=== PATIENT | female | born 1945 | race Caucasian/White ===

== ENCOUNTER → 2016-12-26 | Outpatient (CLI) | payer OTHER ==
[~2016-12-26] MED LIST: CALCTAB5 PO; ESTR0.3T PO; MULT-506 PO; OMEG10007 PO; PRLSR20 PO
--- NOTE | 2016-12-26 12:04 | DIAGNOSTIC IMAGING REPORT ---
DOUBLE CONTRAST UPPER GI SERIES CLINICAL HISTORY: Ekaterina hernia. COMPARISON STUDY: Abdominal CT dated 11/05/2006. TECHNIQUE: A standard air contrast upper GI series was performed. Spot images of the esophagus and stomach were obtained in multiple obliquities both upright and prone. FINDINGS: The patient swallowed barium without difficulty. The esophagus is structurally normal without evidence of intrinsic or extrinsic mass. The esophageal mucosal pattern is normal. No gastroesophageal reflux was elicited by having the patient perform the Valsalva maneuver. The gastroesophageal junction distends normally. There is a large hiatal hernia, with over half of the stomach located in the thoracic cavity. The gastroesophageal junction is located above the diaphragm. There is no evidence of mass or ulceration, and no evidence of gastritis. The duodenal bulb and sweep are unremarkable. Fluoroscopy time: 2.4 minutes. Fluoroscopic images: 19 IMPRESSION: 1. Large hiatal hernia. 2. The esophagus is normal in morphology. Electronically signed by: Saeid Sevilla M.D. 12/26/2016 12:02 PM Dictated Date/Time: 12/26/2016 11:58 AM
== END | disposition home or self-care (01) ==
LOC: C.RAD 11:29
PROVIDERS: ATTEND Surgery
DX: K44.9 Diaphragmatic hernia without obstruction or gangrene (principal)

== ENCOUNTER → 2017-03-14 | Outpatient (CLI) | payer OTHER ==
--- NOTE | 2017-03-14 15:38 | MAMMOGRAPHY REPORT ---
BILATERAL DIGITAL SCREENING MAMMOGRAM WITH CAD: 03/14/2017 CLINICAL HISTORY: Routine screening. Patient has no complaints. TECHNIQUE: Current study was also evaluated with a Computer Aided Detection (CAD) system. Bilateral CC and MLO views were obtained. COMPARISON: Comparison is made to exams dated: 03/13/2016 mammogram, 03/10/2015 mammogram, 03/09/2014 janene mogram, 03/03/2013 mammogram, 03/01/2012 mammogram, and 02/13/2011 mammogram - [facility] er. BREAST COMPOSITION: There are scattered areas of fibroglandular density in both breasts. FINDINGS: No suspicious masses, calcifications, or areas of architectural distortion are noted in ei ther breast. There has been no significant interval change compared to prior exams. Scattered bilater al benign-appearing calcifications are not significantly changed. IMPRESSION: ACR BI-RADS CATEGORY 2: BENIGN There is no mammographic evidence of malignancy. A 1 year screening mammogram is recommended. The pa tient will receive written notification of the results. Approximately 10% of breast cancers are not detected with mammography. A negative mammographic report should not delay biopsy if a clinically suggestive mass is present. More Valdivia M.D. ah/:03/14/2017 10:57:35 Vehicle Damage Appraiser: Ml WALKER(Marilou)(M), [facility] letter sent: Normal 1/2 BI-RADS Code: ACR BI-RADS Category 2: Benign
== END | disposition home or self-care (01) ==
LOC: C.MAMM 10:30
PROVIDERS: ATTEND Obstetrics & Gynecology
DX: Z12.31 Encounter for screening mammogram for malignant neoplasm of breast (principal)

== ENCOUNTER 2017-08-10 14:35 | Emergency (ER) | payer OTHER ==
[~2017-08-10] VITALS: Ht 157.5 cm; Wt 66.5 kg
[2017-08-10 14:39] VITALS: TEMP 36.4; Ht 157.5 cm; Wt 66.5 kg
--- NOTE | 2017-08-10 15:21 | EMERGENCY ROOM VISIT NOTE ---
History Report prepared by Lilly: Cortez Dean Under the Supervision of: Dr. Pedro Soares M.D. First contact with patient: 14:43 Chief Complaint: SHORTNESS OF BREATH Stated Complaint: SHORTNESS OF BREATH History of Present Illness The patient is a 71 year old female who presents to the Emergency Room with complaints of constant palpitations SKIP MINER BLASTING. She notes feeling her heart racing and feeling short of breath. She notified her PCP and was advised to come into the ED. She recently had an esophageal hernia repair two months ago. She denies abdominal pain and chest pain. She denies a history of smoking. Source of History: patient Onset: SKIP MINER BLASTING Quality: other (palpitations) Timing: constant Associated Symptoms: + SOB, No chest pain, No abdominal pain Note: She notes palpitations. Review of Systems See HPI for pertinent positives & negatives. A total of 10 systems reviewed and were otherwise negative. Past Medical & Surgical Medical Problems: (1) bladder lift (2) Facial laceration (3) Forehead contusion (4) Head injury (5) Hysterectomy (6) Removal of acoustic neuroma Family History Family history was reviewed; no changes noted. No other pertinent family history reported. Social History Smoking Status: Never Smoker Alcohol Use: occasionally Marital Status: Housing Status: lives with significant other Occupation Status: unemployed Current/Historical Medications Scheduled Dorzolamide Hcl-Timolol Maleat (Cosopt Oph), 1 DROP OP BID Estrogens, Conjugated (Premarin), 0.3 MG PO 2XWK Latanoprost (Latanoprost), 1 DROP OP DAILY Miscellaneous Medications Fish Oil ([place]-3), 1 CAP PO Allergies Coded Allergies: Quinolones (Verified Allergy, Intermediate, 08/10/17) Sulfa Drugs (Verified Allergy, Intermediate, 08/10/17) Sulfamethoxazole (Verified Allergy, Intermediate, 08/10/17) Physical Exam Vital Signs Date Time Temp Pulse Resp B/P (MAP) Pulse Ox O2 Delivery O2 Flow Rate FiO2 08/10/17 17:03 68 18 151/74 99 08/10/17 16:21 68 18 157/70 98 Room Air 08/10/17 16:16 64 08/10/17 15:26 96 Room Air 08/10/17 15:01 96 Room Air 08/10/17 14:39 36.4 73 20 141/84 98 Room Air Physical Exam GENERAL: Patient is a healthy-appearing well-nourished older female. HEAD: Normocephalic atraumatic EYES: Ocular movements intact pupils equal and react to light OROPHARYNX mucous membranes are moist no exudates present no erythema or edema present NECK: Supple no nuchal rigidity CHEST: Good equal expansion LUNGS: Clear and equal to auscultation CARDIAC: Normal S1 and S2 ABDOMEN: Soft nontender no guarding BACK: No CVA tenderness EXTREMITIES: No pain upon palpation normal muscle strength in all groups no clubbing cyanosis or edema NEURO: Patient is following commands and answering questions appropriately. Alert and oriented x3 Cranial Nerves 2-12 grossly intact Medical Decision & Procedures ER Provider Diagnostic Interpretation: Radiology results as stated below per my review and radiologist interpretation: CHEST ONE VIEW PORTABLE CLINICAL HISTORY: CHEST PAIN dyspnea COMPARISON STUDY: No previous studies for comparison. FINDINGS: The bones soft tissues and hemidiaphragms are normal. The cardiomediastinal silhouette is normal. The lungs are clear. The pulmonary vasculature is normal. IMPRESSION: Negative chest. The above report was generated using voice recognition software. It may contain grammatical, syntax or spelling errors. Electronically signed by: Denton Macias M.D. 08/10/2017 3:30 PM Dictated Date/Time: 08/10/2017 3:30 PM Laboratory Results 08/10/17 15:10 Red Blood Count 4.43, Mean Corpuscular Volume 90.1, Mean Corpuscular Hemoglobin 29.1, Mean Corpuscular Hemoglobin Concent 32.3, Mean Platelet Volume 10.4, Neutrophils (%) (Auto) 64.5, Lymphocytes (%) (Auto) 24.2, Monocytes (%) (Auto) 8.4, Eosinophils (%) (Auto) 2.5, Basophils (%) (Auto) 0.3, Neutrophils # (Auto) 4.69, Lymphocytes # (Auto) 1.76, Monocytes # (Auto) 0.61, Eosinophils # (Auto) 0.18, Basophils # (Auto) 0.02 08/10/17 15:10 Test 08/10/17 15:10 08/10/17 15:18 08/10/17 15:20 White Blood Count 7.27 K/uL (4.8-10.8) Red Blood Count 4.43 M/uL (4.2-5.4) Hemoglobin 12.9 g/dL (12.0-16.0) Hematocrit 39.9 % (37-47) Mean Corpuscular Volume 90.1 fL (80-100) Mean Corpuscular Hemoglobin 29.1 pg (25-34) Mean Corpuscular Hemoglobin Concent 32.3 g/dl (32-36) Platelet Count 285 K/uL (130-400) Mean Platelet Volume 10.4 fL (7.4-10.4) Neutrophils (%) (Auto) 64.5 % Lymphocytes (%) (Auto) 24.2 % Monocytes (%) (Auto) 8.4 % Eosinophils (%) (Auto) 2.5 % Basophils (%) (Auto) 0.3 % Neutrophils # (Auto) 4.69 K/uL (1.4-6.5) Lymphocytes # (Auto) 1.76 K/uL (1.2-3.4) Monocytes # (Auto) 0.61 K/uL (0.11-0.59) Eosinophils # (Auto) 0.18 K/uL (0-0.5) Basophils # (Auto) 0.02 K/uL (0-0.2) RDW Standard Deviation 44.8 fL (36.4-46.3) RDW Coefficient of Variation 13.5 % (11.5-14.5) Immature Granulocyte % (Auto) 0.1 % Immature Granulocyte # (Auto) 0.01 K/uL (0.00-0.02) Est Creatinine Clear Calc Drug Dose 75.4 ml/min Estimated GFR () 106.1 Estimated GFR (Non- 91.5 BUN/Creatinine Ratio 24.9 (10-20) Calcium Level 8.9 mg/dl (8.5-10.1) Total Bilirubin 0.5 mg/dl (0.2-1) Direct Bilirubin mg/dl (0-0.2) Aspartate Amino Transf (AST/SGOT) 19 U/L (15-37) Alanine Aminotransferase (ALT/SGPT) 21 U/L (12-78) Alkaline Phosphatase 68 U/L (45-117) Total Creatine Kinase 59 U/L (26-192) Creatine Kinase MB 0.9 ng/ml (0.5-3.6) Creatine Kinase MB Ratio 1.5 (0-3.0) Troponin I < 0.015 ng/ml (0-0.045) Total Protein 6.8 gm/dl (6.4-8.2) Albumin 3.5 gm/dl (3.4-5.0) Lipase 108 U/L (73-393) Chemistry Specimen Hemolysis Bedside D-Dimer 269 ng/mlFEU (0-450) Bedside Hemoglobin 13.3 g/dl (12.0-16.0) Bedside Hematocrit 39 % (37-47) Bedside Sodium 140 mEq/L (135-144) Bedside Potassium 3.9 mEq/L (3.3-5.0) Bedside Chloride 104 mEq/L (101-112) Bedside Total CO2 24 mEq/l (24-31) Anion Gap 17.0 mmol/L (16-25) Bedside Blood Urea Nitrogen 17 mg/dl (7-18) Bedside Creatinine 0.6 mg/dl (0.6-1.3) Bedside Glucose (other) 92 mg/dl (70-99) Bedside Ionized Calcium (Silvana) 1.23 mmol/l (1.12-1.32) Labs reviewed by ED physician. ECG Indication: palpitations Rate (beats per minute): 63 Rhythm: normal sinus Findings: no acute ischemic change, no ectopy ED Course 1443: Past medical records reviewed. The patient was evaluated in room B10. A complete history and physical examination was performed. 1540: I reassessed the patient at this time. She is feeling better and resting comfortably. 1700: I reassessed the patient at this time. She is feeling better and resting comfortably. I discussed the results and treatment plan with the patient. I answered all pertaining questions that she had. She expressed understanding and verbalized agreement. The patient will be discharged home. Medical Decision Prior records/ancillary studies reviewed. Triage Nursing notes reviewed. The patient's history was concerning for chest pain. Differential diagnosis: Etiologies such as cardiac ischemia, aortic dissection, pulmonary embolism, pneumonia, pneumothorax, musculoskeletal, infections, pericarditis, myocarditis , esophageal rupture, gastrointestinal, as well as others were entertained. This is a 71-year-old female who presents emergency department complaining of palpitations. Upon arrival to the emergency department the patient is still complaining of palpitations however has a normal sinus rhythm on EKG as well as on her strep. In addition the patient has a normal CK-MB troponin as well as CBC. Based on these findings I feel the patient can be safely discharged home as her symptoms have been ongoing for the past 2 weeks. 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 Patient was in agreement with the treatment plan. Medication Reconcilliation Current Medication List: was personally reviewed by me Blood Pressure Screening Patient's blood pressure: Elevated blood pressure Impression Primary Impression: Palpitations Scribe Attestation The scribe's documentation has been prepared under my direction and personally reviewed by me in its entirety. I confirm that the note above accurately reflects all work, treatment, procedures, and medical decision making performed by me. Departure Information Dispostion Home / Self-Care Referrals Zoltan Cooley D.O. (PCP) Forms HOME CARE DOCUMENTATION FORM, IMPORTANT VISIT INFORMATION, School Instructions, Work Instructions Patient Instructions ED Palpitations, My [facility] Additional Instructions Follow up with Dr Grissom's office No strenuous activity until follow up You were found to have an elevated blood pressure today (>120 sytolic or >90 diastolic). Per medicare guidelines, you need to follow up with this blood pressure screening with your Primary Care Physician (PCP). For a new PCP call [phone]. You have been examined and treated today on an emergency basis only. This is not a substitute for, or an effort to provide, complete comprehensive medical care. It is impossible to recognize and treat all injuries or illnesses in a single emergency department visit. It is therefore important that you follow up closely with Dr Cooley. Call as soon as possible for an appointment. Thank you for your time and consideration. I look forward to speaking with you again soon. Please don't hesitate to call us if you have any questions.
[2017-08-10 15:26] VITALS: O2SAT 96
[2017-08-10 15:28] LABS: BASO % 0.3 %; BASO ABS # 0.02 K/uL (0-0.2); COMPLETE YES; EOS % 2.5 %; HEMATOCRIT 39.9 % (37-47); IG% 0.1 %; LYMPH % 24.2 %; LYMPH ABS # 1.76 K/uL (1.2-3.4); MEAN CELL VOLUME 90.1 fL (80-100); MEAN CORPUSCULAR HEMOGLOBIN 29.1 pg (25-34); MEAN CORPUSCULAR HGB CONC 32.3 g/dl (32-36); MEAN PLATELET VOLUME 10.4 fL (7.4-10.4); MONO % 8.4 %; NEUT % 64.5 %; PLATELET COUNT 285 K/uL (130-400); RED BLOOD COUNT 4.43 M/uL (4.2-5.4); WHITE BLOOD COUNT 7.27 K/uL (4.8-10.8)
--- NOTE | 2017-08-10 15:31 | DIAGNOSTIC IMAGING REPORT ---
CHEST ONE VIEW PORTABLE CLINICAL HISTORY: CHEST PAIN dyspnea COMPARISON STUDY: No previous studies for comparison. FINDINGS: The bones soft tissues and hemidiaphragms are normal. The cardiomediastinal silhouette is normal. The lungs are clear. The pulmonary vasculature is normal. IMPRESSION: Negative chest. The above report was generated using voice recognition software. It may contain grammatical, syntax or spelling errors. Electronically signed by: Denton Macias M.D. 08/10/2017 3:30 PM Dictated Date/Time: 08/10/2017 3:30 PM
[2017-08-10 15:34] LABS: ISTAT CREATININE 0.6 mg/dl (0.6-1.3); ISTAT HEMOGLOBIN 13.3 g/dl (12.0-16.0); ISTAT IONIZED CALCIUM 1.23 mmol/l (1.12-1.32)
[2017-08-10] MEDS ORDERED: XLTOPS OP (16:11)
[2017-08-10] MEDS ORDERED: DORZ2SOL20 OP (16:11)
[2017-08-10 16:18] LABS: ALKALINE PHOSPHATASE 68 U/L (45-117); ALT/SGPT 21 U/L (12-78); AST/SGOT 19 U/L (15-37); BLOOD UREA NITROGEN 16 mg/dl (7-18); BUN/CREATININE RATIO 24.9 (10-20); CALCIUM 8.9 mg/dl (8.5-10.1); CARBON DIOXIDE 25 mmol/L (21-32); CHLORIDE 107 mmol/L (98-107); CKMB/CK RATIO 1.5 (0-3.0); CREATININE 0.63 mg/dl (0.60-1.20); GLUCOSE 85 mg/dl (70-99); POTASSIUM 4.2 mmol/L (3.5-5.1); SODIUM 137 mmol/L (136-145)
[2017-08-10 17:03] VITALS: BP 151/74; PULSE 68; O2SAT 99
== END 2017-08-10 17:05 | disposition home or self-care (01) ==
LOC: C.EDB 14:36
DX: R00.2 Palpitations (principal); R06.02 Shortness of breath; Z98.890 Other specified postprocedural states; Z87.828 Personal history of other (healed) physical injury and trauma; Z90.710 Acquired absence of both cervix and uterus

== ENCOUNTER → 2018-03-21 | Outpatient (CLI) | payer OTHER ==
[~2018-03-21] MED LIST changes: -CALCTAB5 PO; +DORZ2SOL20 OP; -MULT-506 PO; -PRLSR20 PO; +XLTOPS OP
--- NOTE | 2018-03-21 08:09 | MAMMOGRAPHY REPORT ---
BILATERAL DIGITAL SCREENING MAMMOGRAM TOMOSYNTHESIS WITH CAD: 03/21/2018 CLINICAL HISTORY: Routine screening. Patient has no complaints. TECHNIQUE: The study was acquired using full field digital technology and interpreted from soft copy. Breast tomosynthesis in addition to standard 2D mammography was performed. Current study was also ev aluated with a Computer Aided Detection (CAD) system. COMPARISON: Comparison is made to exams dated: 03/14/2017 mammogram, 03/13/2016 mammogram, 03/10/2015 ma mmogram, 03/09/2014 mammogram, 03/03/2013 mammogram, and 03/01/2012 mammogram - [facility] er. BREAST COMPOSITION: There are scattered areas of fibroglandular density in both breasts. FINDINGS: There are possible grouped calcifications within the left upper outer quadrant, for which spot magnif ication views are recommended for further evaluation. The remainder of both breasts are stable compared to prior exams, without suspicious masses, calcific ations, or areas of architectural distortion noted. Other scattered bilateral benign-appearing calci fications are not significantly changed. Asymmetry in the left lateral anterior breast is stable nate ing back to at least the 2009 exam. IMPRESSION: ACR BI-RADS CATEGORY 0: INCOMPLETE EVALUATION: NEED ADDITIONAL IMAGING EVALUATION Left breast calcifications, for which additional imaging evaluation is recommended. The patient will be called to schedule an appointment. Approximately 10% of breast cancers are not detected with mammography. A negative mammographic report should not delay biopsy if a clinically suggestive mass is present. More Valdivia M.D. /:03/21/2018 07:38:56 Inpatient Pharmacist: Vanessa Grove, [facility] letter sent: Addl Imaging 0 BI-RADS Code: ACR BI-RADS Category 0: Incomplete Evaluation: Need Additional Imaging Evaluation
== END | disposition home or self-care (01) ==
LOC: C.MAMM 07:10
PROVIDERS: ATTEND Obstetrics & Gynecology
DX: Z12.31 Encounter for screening mammogram for malignant neoplasm of breast (principal); R92.8 Other abnormal and inconclusive findings on diagnostic imaging of breast

== ENCOUNTER → 2018-03-27 | Outpatient (CLI) | payer OTHER ==
--- NOTE | 2018-03-28 07:58 | MAMMOGRAPHY REPORT ---
UNILATERAL LEFT DIGITAL DIAGNOSTIC MAMMOGRAM: 03/27/2018 CLINICAL HISTORY: Callback from screening mammogram for left breast calcifications. TECHNIQUE: The study was acquired using full field digital technology and interpreted from soft copy. Spot magnification left CC and ML views were obtained. COMPARISON: Comparison is made to exams dated: 03/21/2018 mammogram, 03/14/2017 mammogram, 03/13/2016 m ammogram, 03/10/2015 mammogram, 03/09/2014 mammogram, and 03/03/2013 mammogram - [facility] er. BREAST COMPOSITION: There are scattered areas of fibroglandular density in left breast. FINDINGS: Spot magnification views of the left breast demonstrate a small 2 mm cluster of amorphous calcificati ons in the left lateral breast at approximately 3:00. The calcifications are indeterminate and stere otactic biopsy is recommended for further evaluation. Another small similar-appearing 1 mm cluster i s seen the adjacent breast approximately 5 mm medial and 7 mm posterior to the dominant cluster, for which management will be based on the pathology results of the dominant cluster. Another small 1 mm cluster of punctate calcifications in the left lateral breast is stable compared to multiple prior ex ams. IMPRESSION: ACR BI-RADS CATEGORY 4: SUSPICIOUS 1. Small 2 mm cluster of amorphous calcifications in the left 3:00 breast is indeterminate and stereo tactic biopsy is recommended for further evaluation. 2. Small 1 mm cluster of similar-appearing calcifications in the adjacent left 3:00 breast. Managem ent of this cluster will be based on the pathology results from biopsy of the dominant cluster. A phone call was made to the physician's office to confirm faxed results were received. The patient has been verbally notified of the results. She tentatively scheduled the biopsy before l eaving the department. Some breast cancers are not detected with mammography. A negative mammographic report should not marychuy y biopsy if a clinically suggestive mass is present. More Valdivia M.D. ah/:03/27/2018 09:30:46 Book Cutter: RT Audra(Marilou)(M), [facility] letter sent: Abnormal 4/5 BI-RADS Code: ACR BI-RADS Category 4: Suspicious
== END | disposition home or self-care (01) ==
LOC: C.MAMM 08:40
PROVIDERS: ATTEND Obstetrics & Gynecology
DX: R92.1 Mammographic calcification found on diagnostic imaging of breast (principal)

== ENCOUNTER → 2018-04-03 | Outpatient (CLI) | payer OTHER ==
--- NOTE | 2018-04-03 14:07 | Discharge Instructions ---
Discharge Instructions Procedure Procedure Date: Apr 03, 2018. Reason for visit: Left Calcs. Discharge Discharge Date: Apr 03, 2018. Discharge Diagnosis: status post breast biopsy Instructions Activity Recommendations: Additional Limitations (see below) Return to School/Work: no limitations Recommended Home Diet: No Limitations Provider Instructions: ACTIVITY RECOMMENDATIONS: * No lifting, pushing, pulling or exercising the affected side for three days. RETURN TO SCHOOL/WORK: * You may return to work/school after the procedure, but do not perform any strenuous activities for 24 to 48 hours. MEDICATIONS: * Tylenol (two 325 mg) every four to six hours if needed for mild pain (if not allergic to Tylenol). DIET: * Resume previous diet. SPECIAL CARE INSTRUCTIONS: * Keep biopsy site dry for 24 hours. May shower after 24 hours, but do not soak (bathe) incision. * May remove Tegaderm (plastic patch) 24 hours after procedure * Leave the steri-strips on for one week. Allow the steri-strips to fall off by themselves. If not off after one week, you may remove them. You may place a Bandaid crosswise over the strips, if desired. * Apply ice 10 minutes on and 10 minutes off as needed. * Wear a bra at bedtime to sleep more comfortably for 2-3 days. * Your referring physician should have the results after approximately 5 to 7 business days. * Call for unusual bleeding, fever, drainage, etc or if you have any questions call during normal business hours or after hours call Dr Valdivia, [phone]. FOLLOW UP VISIT: Follow-up with Referring Physician as scheduled. Allergies Coded Allergies: Quinolones (Verified Allergy, Intermediate, 08/10/17) Sulfa Drugs (Verified Allergy, Intermediate, 08/10/17) Sulfamethoxazole (Verified Allergy, Intermediate, 08/10/17) Prabhu Smiley Recommendations: Call your doctor if: * Temperature above 101 degrees * Pain not relieved by pain medicine ordered * There is increased drainage or redness from any incision * You have any unanswered questions or concerns. Your Doctors Instructions noted above were prepared by provider More Valdivia. Patient Signature Section: Patient Instructions Signature Page Miley Goncalves Patient (or Guardian) Signature/Date: I have read and understand the instructions given to me by my caregivers. Caregiver/RN/Doctor Signature/Date: The above-named patient and/or guardian has received patient instructions on this date. + Original Patient Signature Page (only) stays with chart. Please make copy for patient.
--- NOTE | 2018-04-03 14:54 | MAMMOGRAPHY REPORT ---
STEREOTACTIC GUIDED BIOPSY LEFT BREAST: 04/03/2018 CLINICAL HISTORY: Small cluster of calcifications in the left 3:00 breast. PATIENT CONSENT: The procedure, risks, benefits, and alternatives of stereotactic biopsy with clip pl acement were discussed with the patient, and verbal and written consent was obtained. A timeout was performed immediately prior to the procedure. PROCEDURE DESCRIPTION: With stereotactic guidance, aseptic technique, and lidocaine as a local anesth etic (1% lidocaine to anesthetize the skin and 1% lidocaine with epinephrine to anesthetize the deepe r tissues), the calcifications of concern in the left 3:00 breast were sampled multiple times with a 9-gauge vacuum-assisted biopsy needle (Kloudcoiva). The path of approach was caudocranial. The spe cimen radiograph demonstrates calcifications to be present in the samples. A metallic marker clip wa s placed at the biopsy site. Postprocedural mammograms were obtained to confirm clip placement. Dir ect pressure was applied at the biopsy site until hemostasis was achieved. The patient tolerated the procedure without complication. She was given wound care instructions. COMPARISON: Comparison is made to exams dated: 03/27/2018 mammogram, 03/21/2018 mammogram, 03/14/2017 m ammogram, 03/13/2016 mammogram, 03/10/2015 mammogram, and 03/09/2014 mammogram - [facility]. IMPRESSION: STEREOTACTIC GUIDED BIOPSY Stereotactic biopsy of indeterminate calcifications in the left 3:00 breast, with clip placement. Th e patient will receive pathology results from her referring provider. More Valdivia M.D. ah/:04/03/2018 14:08:48 Studio Operation Engineer: RT Kimberlee(R)(M), [facility]
--- NOTE | 2018-04-03 14:57 | MAMMOGRAPHY REPORT ---
UNILATERAL LEFT DIGITAL DIAGNOSTIC MAMMOGRAM TOMOSYNTHESIS: 04/03/2018 CLINICAL HISTORY: Status post left breast stereotactic biopsy. TECHNIQUE: The study was acquired using full field digital technology and interpreted from soft copy. Breast tomosynthesis in addition to standard 2D mammography was performed. Postprocedural left CC a nd ML tomosynthesis and 2D images were obtained. COMPARISON: Comparison is made to exams dated: 03/27/2018 mammogram, 03/21/2018 mammogram, 03/14/2017 m ammogram, 03/13/2016 mammogram, and 03/10/2015 mammogram - [facility]. BREAST COMPOSITION: There are scattered areas of fibroglandular density in left breast. FINDINGS: A new biopsy clip is seen at the site of the biopsied calcifications in the left 3:00 breas t. No significant postbiopsy hematoma is seen. IMPRESSION: POST PROCEDURE IMAGING FOR MARKER PLACEMENT New biopsy clip status post stereotactic biopsy of left 3:00 breast calcifications. Pathology result s are pending. Some breast cancers are not detected with mammography. A negative mammographic report should not marychuy y biopsy if a clinically suggestive mass is present. More Valdivia M.D. /:04/03/2018 14:27:43 Senior Center Manager: RT Kimberlee(Marilou)(M), [facility] BI-RADS Code: Post Procedure Imaging For Marker Placement
== END | disposition home or self-care (01) ==
LOC: C.MAMM 12:55
PROVIDERS: ATTEND Obstetrics & Gynecology
DX: R92.0 Mammographic microcalcification found on diagnostic imaging of breast (principal); D24.2 Benign neoplasm of left breast